=== PATIENT | male | born 1980 | race African-American/Black ===

== ENCOUNTER 2019-12-12 02:26 | Emergency (ER) | payer OTHER ==
[2019-12-12 03:20] LABS: ABSOLUTE EOSINOPHILS # (AUTO) 0.2 10^3/uL (0.0-0.6); ABSOLUTE LYMPHOCYTES (AUTO) 2.5 10^3/uL (0.5-4.7); ABSOLUTE MONOCYTES (AUTO) 0.7 10^3/uL (0.1-1.4); ABSOLUTE NEUT (AUTO) 2.2 10^3/uL (1.7-8.2); BASOPHILS % (AUTO) 0.2 % (0-2); LYMPHOCYTES % (AUTO) 44.9 % (13-45); MEAN CORPUSCULAR HEMOGLOBIN 27.9 pg (27.0-33.4); MEAN CORPUSCULAR HGB CONC 32.6 g/dL (32.0-36.0); MEAN CORPUSCULAR VOLUME 85 fl (80-97); MONOCYTES % (AUTO) 11.8 % (3-13); PLATELET COUNT 238 10^3/uL (150-450); RED BLOOD COUNT 5.39 10^6/uL (4.35-5.55); RED CELL DISTRIBUTION WIDTH 13.7 % (11.5-14.0); SEGMENTED NEUTROPHILS % (AUTO) 39.1 % (42-78); TOTAL CELLS COUNTED % (AUTO) 100 %; WHITE BLOOD COUNT 5.7 10^3/uL (4.0-10.5)
[2019-12-12 03:36] LABS: ALBUMIN 4.3 g/dL (3.5-5.0); ALKALINE PHOSPHATASE 61 U/L (38-126); ANION GAP 8 (5-19); ASPARTATE AMINO TRANSFERASE 27 U/L (17-59); BILIRUBIN,DIRECT 0.1 mg/dL (0.0-0.4); BLOOD UREA NITROGEN 10 mg/dL (7-20); CALCIUM 8.9 mg/dL (8.4-10.2); CARBON DIOXIDE 28 mmol/L (22-30); CHLORIDE 104 mmol/L (98-107); GLUCOSE 100 mg/dL (75-110); POTASSIUM 3.9 mmol/L (3.6-5.0); TOTAL PROTEIN 7.4 g/dL (6.3-8.2)
[2019-12-12] MEDS ORDERED: NORMAL SALINE 500 ML IV ONE (03:47)
[2019-12-12] MEDS ORDERED: MORPHINE SULFATE 10 MG/ML INJ IV ONE (04:14)
[2019-12-12] MEDS ORDERED: KETOROLAC TROMETHAMINE INJ/PF 30 MG/1 ML SDV IV ONE (04:14)
[2019-12-12] MEDS ORDERED: ONDANSETRON HCL INJ/PF 4 MG/2 ML SDV IV ONE (04:14)
--- NOTE | 2019-12-12 04:17 | ER Document Report ---
ED Medical Screen (RME) - General Chief Complaint: Flank Pain Stated Complaint: ABDOMINAL PAIN,BLACK STOOLS Time Seen by Provider: 12/12/19 04:11 Primary Care Provider: RIRI SOTO DO [Primary Care Provider] - Follow up as needed Notes: 39-year-old male with chief complaint of intermittent pain in the left lower abdomen and back for a couple of days but tonight he had sudden onset severe pain and vomiting. Denies fever, dysuria, hematuria, or history of kidney stones. Denies surgeries or daily medications, denies any medical history. TRAVEL OUTSIDE OF THE [place] IN LAST 30 DAYS: No - Related Data Allergies/Adverse Reactions: carbamazepine [From Tegretol] Allergy (Mild, Verified 12/12/19 03:16) Generalized rash Past Medical History - Social History Chew tobacco use (# tins/day): No Frequency of alcohol use: None Drug Abuse: None - Past Medical History Cardiac Medical History: Denies: Hx Coronary Artery Disease, Hx Heart Attack, Hx Hypertension Pulmonary Medical History: Denies: Hx Asthma, Hx Bronchitis, Hx COPD, Hx Pneumonia Neurological Medical History: Denies: Hx Cerebrovascular Accident, Hx Seizures Musculoskeltal Medical History: Reports Hx Arthritis - right knee Past Surgical History: Reports: Hx Oral Surgery - [place]eth - Immunizations Hx Diphtheria, Pertussis, Tetanus Vaccination: Yes Physical Exam - Vital signs Vitals: Temp Pulse Resp BP Pulse Ox 98.4 F 79 18 149/101 H 96 12/12/19 02:35 12/12/19 02:35 12/12/19 02:35 12/12/19 02:35 12/12/19 02:35 - General General appearance: Other - Patient restless, appears obviously uncomfortable - Abdominal Tenderness: Tender - There is some tenderness in the general left mid to lower abdomen, nonspecific, no guarding Course - Re-evaluation Re-evalutation: I have greeted and performed a rapid initial assessment of this patient. A comprehensive ED assessment and evaluation of the patient, analysis of test results and completion of the medical decision making process will be conducted by additional ED providers. - Vital Signs Vital signs: Temp Pulse Resp BP Pulse Ox 98.4 F 75 14 133/84 H 97 12/12/19 02:35 12/12/19 03:12 12/12/19 03:12 12/12/19 03:12 12/12/19 03:12 - Laboratory Result Diagrams: 12/12/19 03:04 12/12/19 03:04 Laboratory results interpreted by me: 12/12/19 03:04 Seg Neutrophils % 39.1 L Doctor's Discharge - Discharge Referrals: RIRI SOTO DO [Primary Care Provider] - Follow up as needed
--- NOTE | 2019-12-12 05:15 | RADIOLOGY REPORT (SQ) ---
EXAM DESCRIPTION: CT ABDOMEN PELVIS WITHOUT IV CONTRAST COMPLETED DATE/TME: 12/12/2019 04:15 CLINICAL HISTORY: 39 years, Male, left flank and abd pain, vomiting COMPARISON: 10/28/2014 CT TECHNIQUE: 329 Images stored on PACS. All CT scanners at this facility use dose modulation, iterative reconstruction, and/or weight based dosing when appropriate to reduce radiation dose to as low as reasonably achievable (ALARA). [facility]: Dose Right [facility]: CareDose [facility]: Dose Right [facility]: Teradose 4D [facility]: [employer] LIMITATIONS: None. FINDINGS: The visualized lung bases are unremarkable. Osseous structures are grossly intact. Fatty infiltrative change to the liver. The spleen is unremarkable. Stable nodularity to the adrenal glands bilaterally likely reflecting adenomas. Pancreas, kidneys are unremarkable. The gallbladder is present. Negative for urinary tract calculus or hydronephrosis. Large amount of stool in the colon. No gross evidence for bowel obstruction. Normal appendix. No free air or free fluid. IMPRESSION: No acute intra-abdominal/pelvic process. Negative for urinary tract calculus or hydronephrosis TECHNICAL DOCUMENTATION: Quality ID # [id number]: Final reports with documentation of one or more dose reduction techniques (e.g., Automated exposure control, adjustment of the mA and/or kV according to patient size, use of iterative reconstruction technique) copyright 2011 [employer]- All Rights Reserved
[2019-12-12 05:58] LABS: APPEARANCE,URINE SLIGHTLY-CLOUDY; BILIRUBIN,URINE NEGATIVE (NEGATIVE); COLOR,URINE YELLOW; GLUCOSE, URINE NEGATIVE (NEGATIVE); KETONES,URINE NEGATIVE (NEGATIVE); LEUKOCYTE ESTERASE,URINE NEGATIVE (NEGATIVE); NITRITE,URINE NEGATIVE (NEGATIVE); PROTEIN,URINE 30 mg/dL (NEGATIVE); URINE SPECIFIC GRAVITY 1.019; UROBILINOGEN,URINE NEGATIVE mg/dL (<2.0)
--- NOTE | 2019-12-12 06:03 | ER Document Report ---
ED GI/ - General Chief Complaint: Flank Pain Stated Complaint: ABDOMINAL PAIN,BLACK STOOLS Time Seen by Provider: 12/12/19 04:11 Primary Care Provider: RIRI SOTO DO [ACTIVE STAFF] - Follow up as needed Notes: Patient is a 39-year-old male that comes to the Emergency Department with chief complaint of intermittent pain in the left lower abdomen and back for a couple of days but tonight he had sudden onset severe pain and an episode of vomiting. He denies fever, dysuria, hematuria, or history of kidney stones. He reports normal bowel movements. Denies surgeries or daily medications, denies any medical history. TRAVEL OUTSIDE OF THE [place] IN LAST 30 DAYS: No - Related Data Allergies/Adverse Reactions: carbamazepine [From Tegretol] Allergy (Mild, Verified 12/12/19 03:16) Generalized rash Past Medical History - General Information source: Patient - Social History Smoking Status: Never Smoker Chew tobacco use (# tins/day): No Frequency of alcohol use: None Drug Abuse: None Lives with: Family Family History: None Patient has suicidal ideation: No Patient has homicidal ideation: No - Past Medical History Cardiac Medical History: Denies: Hx Coronary Artery Disease, Hx Heart Attack, Hx Hypertension Pulmonary Medical History: Denies: Hx Asthma, Hx Bronchitis, Hx COPD, Hx Pneumonia Neurological Medical History: Denies: Hx Cerebrovascular Accident, Hx Seizures Musculoskeletal Medical History: Reports Hx Arthritis - right knee Past Surgical History: Reports: Hx Oral Surgery - [place] Teeth - Immunizations Hx Diphtheria, Pertussis, Tetanus Vaccination: Yes Review of Systems - Review of Systems Constitutional: No symptoms reported EENT: No symptoms reported Cardiovascular: No symptoms reported Respiratory: No symptoms reported Gastrointestinal: See HPI Genitourinary: See HPI Male Genitourinary: No symptoms reported Musculoskeletal: No symptoms reported Skin: No symptoms reported Hematologic/Lymphatic: No symptoms reported Neurological/Psychological: No symptoms reported Physical Exam - Vital signs Vitals: Temp Pulse Resp BP Pulse Ox 98.4 F 79 18 149/101 H 96 12/12/19 02:35 12/12/19 02:35 12/12/19 02:35 12/12/19 02:35 12/12/19 02:35 - Notes Notes: GENERAL: Patient appears to be in pain but not in severe distress, he is slightly restless HEAD: Normocephalic, atraumatic. EYES: Pupils equal, round, and reactive to light. Extraocular movements intact. ENT: Oral mucosa moist, tongue midline. Oropharynx unremarkable. Airway patent. LUNGS: Clear to auscultation bilaterally, no wheezes, rales, or rhonchi. No respiratory distress. HEART: Regular rate and rhythm. No murmur ABDOMEN: There is some generalized tenderness in the mid to left lower abdomen, nonspecific, no guarding. Remaining abdomen benign. GENITOURINARY: Deferred EXTREMITIES: Moves all 4 extremities spontaneously. No edema, normal radial and dorsalis pedis pulses bilaterally. No cyanosis. BACK: No noted CVA tenderness. No cervical, thoracic, lumbar midline tenderness. No saddle anesthesia, normal distal neurovascular exam. Moves all extremities in full range of motion. NEUROLOGICAL: Alert and oriented x3. Normal speech. Cranial nerves II through XII grossly intact. PSYCH: Slightly restless SKIN: Warm, dry, normal turgor. No rashes or lesions noted. Course - Re-evaluation Re-evalutation: After medications on reevaluation patient is calm, smiling, laughing, well- appearing. Vital signs unremarkable. CBC, chemistry unremarkable. Urine does have some blood in it. Because patient has never had a kidney stone and because of his discomfort initially a CAT scan was performed but this shows no acute abnormality. I suspect patient passed the stone just prior to arrival. Patient is very relieved about this. Discussed expectations, follow-up, and return precautions. Patient states understanding and agreement. Stable and well- appearing at time of discharge. - Vital Signs Vital signs: Temp Pulse Resp BP Pulse Ox 98.6 F 82 16 118/77 98 12/12/19 06:23 12/12/19 06:23 12/12/19 06:23 12/12/19 06:23 12/12/19 06:23 - Laboratory Result Diagrams: 12/12/19 03:04 12/12/19 03:04 Laboratory results interpreted by me: 12/12/19 12/12/19 03:04 05:39 Seg Neutrophils % 39.1 L Urine Protein 30 H Urine Blood SMALL H Discharge - Discharge Clinical Impression: Left flank pain Abdominal pain Qualifiers: Abdominal location: left lower quadrant Qualified Code(s): R10.32 - Left lower quadrant pain Hematuria Qualifiers: Hematuria type: other microscopic Qualified Code(s): R31.29 - Other microscopic hematuria Condition: Stable Disposition: HOME, SELF-CARE Additional Instructions: Based on your symptoms, evaluation, and the blood in your urine I suspect you passed a kidney stone. No current stone or concerning finding is seen on the imaging fortunately. You will likely have some intermittent spasm/pain over the next couple of days but this should resolve with time. Drink plenty fluids, take provided medications if needed, and rest. Follow-up with primary care. Return for any concerning symptoms including return of vomiting, severe worsening pain, fever, or any other concerning symptoms. Prescriptions: Ketorolac Tromethamine [Toradol 10 mg Tablet] 10 mg PO Q8HP PRN #24 tablet PRN Reason: Ondansetron [Zofran Odt 4 mg Tablet] 1 - 2 tab PO Q4H PRN #15 tab.rapdis PRN Reason: For Nausea/Vomiting Referrals: RIRI SOTO, DO [ACTIVE STAFF] - Follow up as needed
[2019-12-12] MEDS ORDERED: HYDROCODONE/ACETAMINOPHEN 5-325 MG (6 TAB/ER DISP) PO PRN (06:17)
[2019-12-12 06:27] VITALS: BP 118/77
== END 2019-12-12 06:23 | disposition home or self-care (01) ==
LOC: ER 02:26
DX: R10.32 Left lower quadrant pain (principal); R31.29 Other microscopic hematuria; R19.5 Other fecal abnormalities; R11.10 Vomiting, unspecified
CPT/HCPCS: 99284; 96361; 96374; 96375; 36415; 83690; 85025; 80053; 81001; 74176; J1885; J2270; J2405; J7040

== ENCOUNTER 2019-12-24 09:19 | Day surgery (SDC) | payer OTHER ==
[~2019-12-24 09:19] MED LIST: PROPOFOL INJ 200 MG/20 ML VIAL IV ONE
[2019-12-24] MEDS ORDERED: PROPOFOL INJ 200 MG/20 ML VIAL IV ONE (11:17)
--- NOTE | 2019-12-24 11:42 | Operative Report ---
Operative Report DATE OF SURGERY: 12/24/19 Operative Report: The risk, benefits and alternatives of the procedure including the risk of bleeding, perforation requiring surgery have been explained to the patient in detail and informed consent has been obtained. Patient is taken back to the endoscopy suite and placed in a left, lateral decubital position. Timeout was called. Propofol medication is administered. Rectal examination is done which did not reveal any masses, tears or fissures. An Olympus videoscope was inserted into the patient's rectum. Scope was then carefully advanced all the way to the cecum. Cecum was identified by the usual anatomical landmarks including the ileocecal valve as well as the appendiceal office. Photodocumentation is obtained. Scope was then sequentially pulled back via the various segments of the colon including the ascending colon, back flexure, transverse colon, splenic flexure, descending colon and finally into the rectosigmoid portions of the colon. Retroflexion maneuvers performed. PREOPERATIVE DIAGNOSIS: Change in bowel habits, blood in the stool POSTOPERATIVE DIAGNOSIS: Superficial ulceration in a continuous fashion from 0 to 40 cm suggestive of ulcerative colitis. Biopsies obtained. OPERATION: Colonoscopy with biopsy SURGEON: MARYAN CHISHOLM ANESTHESIA: LMAC TISSUE REMOVED OR ALTERED: As noted above. COMPLICATIONS: None. ESTIMATED BLOOD LOSS: None. INTRAOPERATIVE FINDINGS: As noted above. PROCEDURE: Patient tolerated the procedure well. No immediate postprocedure complications are noted. Patient is discharged in good condition. Discharge date 12/24/2019. Discharge diet: Regular. Discharge activity: Regular. 2 to 3-week follow-up to discuss findings. Patient is instructed to call the office or proceed to the emergency room Should there be any further problems or questions. Wait on the pathology.
[2019-12-24 12:12] VITALS: BP 122/65
== END 2019-12-24 12:15 | disposition home or self-care (01) ==
LOC: END 09:19
PROVIDERS: ATTEND Internal Medicine Gastroenterology
DX: K52.9 Noninfective gastroenteritis and colitis, unspecified (principal); Z79.899 Other long term (current) drug therapy; G40.909 Epilepsy, unspecified, not intractable, without status epilepticus; Z87.440 Personal history of urinary (tract) infections
CPT/HCPCS: 45380; 88305 ×2; J2704; 811